=== PATIENT | male | born 1955 | race Caucasian/White ===

== ENCOUNTER 2020-05-31 12:45 | Emergency (ER) | payer OTHER, MEDICARE ==
[~2020-05-31] VITALS: Ht 172.7 cm; Wt 73.5 kg
[2020-05-31 12:55] VITALS: Ht 172.7 cm; Wt 73.5 kg
[2020-05-31 13:35] LABS: BASOPHIL % 0.5 % (0-2); PLATELET COUNT 169 x10^3mcL (130-400); RED CELL DISTRIBUTION WIDTH 14.8 % (11.5-14.5)
[2020-05-31 13:41] LABS: CALCIUM 9.1 mg/dL (8.5-10.1); CHLORIDE SERUM 103 mmol/L (98-107); GFR1 > 60 mL/min; GLUCOSE SERUM 124 mg/dL (74-106); POTASSIUM SERUM 3.9 mmol/L (3.5-5.1); SODIUM SERUM 138 mmol/L (136-145)
[2020-05-31 16:38] VITALS: BP 120/66
== END 2020-05-31 16:38 | disposition home or self-care (01) ==
LOC: ED 12:45
PROVIDERS: Specialist
DX: R33.9 Retention of urine, unspecified (principal); R10.84 Generalized abdominal pain